=== PATIENT | female | born 1975 | race Caucasian/White ===

== ENCOUNTER 2024-01-26 15:11 | Outpatient (CLI) | payer OTHER, SELFPAY ==
--- NOTE | ~2024-01-26 | MR_ITS ---
EXAMINATION: MR shoulder LT wo con DATE: 01/26/2024 15:43 INDICATION: Left shoulder pain TECHNIQUE: Magnetic resonance imaging (MRI) of the left shoulder was performed without intravenous co ntrast. Sequences included axial PD-weighted FS FSE, coronal oblique PD-weighted FS FSE, coronal obli que T2-weighted FS FSE, sagittal PD-weighted FS FSE, and sagittal T1-weighted SE. COMPARISON: MRI dated 08/22/2013 FINDINGS: Coracoacromial arch: The acromion undersurface is flat in morphology (type I). The coracoacromial ligament is normal. Acro mioclavicular joint is normal. Rotator cuff: There is a 6 x 7 x 3 mm globular region of low signal intensity at the distal aspect of the conjoined portion of the supraspinatus and infraspinatus tendons suspicious for calcific tendinitis. Supraspin atus and infraspinatus tendons are otherwise normal as are the teres minor and subscapularis tendons. Normal rotator cuff muscle bulk and signal. Biceps tendon, glenoid labrum and glenohumeral cartilage: Long head of the biceps tendon is normal. No interval change in a small superior, anterior to posteri or tear of the glenoid labrum (SLAP tear) at the 12:00 position of the glenoid labrum. Remainder of t he labrum is normal. Glenohumeral cartilage is normal. Fluid: Physiologic amount of fluid in the glenohumeral joint and biceps tendon sheath. No loose osteochondr al bodies. No abnormal increased fluid signal in the subacromial/subdeltoid bursa to suggest bursitis . Bones: Normal marrow signal with no edema, fracture or abnormal marrow replacing process. IMPRESSION: 1. 7 x 6 x 3 mm globular region of low signal intensity distal conjoined portion of the supraspinatus and infraspinatus tendon suspicious for calcific tendinitis. Consider correlation with plain radiogr aphs for confirmation. 2. Unchanged small SLAP tear at the superior glenoid labrum. Reviewed, dictated and finalized at location L. IMPRESSION: 1. 7 x 6 x 3 mm globular region of low signal intensity distal conjoined portio n of the supraspinatus and infraspinatus tendon suspicious for calcific tendini tis. Consider correlation with plain radiographs for confirmation. 2. Unchanged small SLAP tear at the superior glenoid labrum.
== END 2024-01-26 15:12 ==
DX: S43.432A Superior glenoid labrum lesion of left shoulder, initial encounter (principal); M25.512 Pain in left shoulder
CPT/HCPCS: 73221